=== PATIENT | male | born 1940 | race Caucasian/White ===

== ENCOUNTER 2019-01-26 20:13 | Inpatient (IN) | payer OTHER ==
[~2019-01-26] VITALS: Ht 172.7 cm; Wt 78.0 kg
[2019-01-26 20:13] VITALS: BP 132/65
--- NOTE | 2019-01-26 20:21 | NUR ---
BIBA TO ER BED 6
--- NOTE | 2019-01-26 20:30 | NUR ---
78/M PRESENTED TO ED BIBA WITH C/O GENERALIZED WEAKNESS X 3 DAYS. STATES HE HAD HEART BURN EARLIER TODAY. DID NOT TAKE MEDICATION TO RELIEVE SYMPTOMS. VSS. NO PAST MED HX. NO RX. DENIES ALLERGIES.
[2019-01-26 21:45] LABS: EOSINOPHILS # (AUTO) 0.2 K/uL (0-0.4); MONOCYTES # (AUTO) 0.3 K/uL (0.8-1.0); MONOCYTES % (AUTO) 9.7 % (1.7-9.3); NEUTROPHILS # (AUTO) 1.6 K/uL (1.8-7.7)
--- NOTE | 2019-01-26 22:00 | NUR ---
EKG PERFORMED AT BEDSIDE
--- NOTE | 2019-01-26 22:08 | NUR ---
WENT TO CT
[2019-01-26 22:18] LABS: EOSINOPHILS % (AUTO) 6.2 % (0.0-4.0); HEMATOCRIT 21.7 % (36-52); LYMPHOCYTES # (AUTO) 0.8 K/uL (2.0-11.5); LYMPHOCYTES % (AUTO) 26.9 % (20.5-51.1); MEAN CORPUSCULAR HEMOGLOBIN 30 pg (27-31); MEAN CORPUSCULAR HGB CONC 32 g/dL (33-37); MEAN CORPUSCULAR VOLUME 95.5 fL (80-94); NEUTROPHILS % (AUTO) 56.2 % (42.2-75.2); PLATELET COUNT (AUTO) 118 K/uL (140-450); RED BLOOD CELL COUNT(AUTO) 2.27 MIL/uL (4.20-6.10); RED CELL DISTRIBUTION WIDTH 14.8 % (11.6-13.7); WHITE BLOOD COUNT (AUTO) 2.9 K/uL (4.8-10.8)
[2019-01-26 22:23] LABS: HEMOGLOBIN 6.9 g/dL (12.0-18.0)
--- NOTE | 2019-01-26 22:23 | NUR ---
H/H 6.9 21.7, DR DOHERTY NOTIFIED
--- NOTE | 2019-01-26 22:44 | NUR ---
SUPERVISOR DRAWING AT BEDSIDE
[2019-01-26 22:57] LABS: ALBUMIN 3.4 g/dL (3.4-5.0); ANION GAP 23.7 (8-16); ASPARTATE AMINOTRANSFERASE 46 U/L (15-37); CARBON DIOXIDE 12.3 mmol/L (21-32); CHLORIDE 104 mmol/L (98-107); GLUCOSE 83 mg/dL (74-106); LIPASE 857 U/L (73-393); SODIUM SERUM 131 mmol/L (136-145); TOTAL BILIRUBIN 0.4 mg/dL (0.0-1.0)
[2019-01-26 23:05] LABS: CREATININE 14.1 mg/dL (0.7-1.3); UREA NITROGEN, BLOOD 163 mg/dL (7-18)
[2019-01-26] MEDS ORDERED: CALCIUM GLUCONATE 10% 1000 MG/10 ML VIAL IVP ONE (23:05)
[2019-01-26] MEDS ORDERED: INSULIN REGULAR, HUMAN 100 UNIT/ML VIAL IVP ONE (23:05)
[2019-01-26] MEDS ORDERED: DEXTROSE 50% 50 ML SYR IVP ONE (23:05)
[2019-01-26] MEDS ORDERED: ALBUTEROL 0.083% 2.5 MG/3 ML NEBU INH ONE (23:05)
[2019-01-26] MEDS ORDERED: SODIUM POLYSTYRENE 15 GM/60 ML UDBTL PO ONE (23:05)
[2019-01-26] MEDS ORDERED: NACL 0.9% 1,000 ML IV ONE ×2 (23:10→23:45)
[2019-01-26] MEDS ORDERED: cefTRIAXone 1,000 MG VIAL ONE (23:13)
[2019-01-26] MEDS ORDERED: ONDANSETRON 4 MG/2 ML VIAL IVP PRN (23:25)
[2019-01-26] MEDS ORDERED: ACETAMINOPHEN 325 MG TAB PO PRN (23:25)
[2019-01-26] MEDS ORDERED: HYDROcodone/APAP 7.5/325 MG 1 TAB PO PRN (23:25)
--- NOTE | 2019-01-26 23:56 | NUR ---
[employer] UTILITY WORKER AT BEDSIDE
--- NOTE | 2019-01-26 23:56 | NUR ---
FAMILY AT BEDSIDE. VSS. NO SIGNS OF DISTRESS. WILL CONTINUE TO MONITOR
[2019-01-27] VITALS (28 sets, daily range): BP systolic 90–144; BP diastolic 53–84
[2019-01-27 00:23] LABS: ANION GAP 20.9 (8-16); CARBON DIOXIDE 11.6 mmol/L (21-32); CHLORIDE 106 mmol/L (98-107); GLUCOSE 163 mg/dL (74-106); SODIUM SERUM 131 mmol/L (136-145)
[2019-01-27 00:28] LABS: CREATININE 13.2 mg/dL (0.7-1.3); POTASSIUM 7.5 mmol/L (3.5-5.1)
[2019-01-27 00:29] LABS: UREA NITROGEN, BLOOD 156 mg/dL (7-18)
[2019-01-27] MEDS ORDERED: PATIROMER CALCIUM SORBITEX 8.4 GM PKT PO ONE (00:55)
[2019-01-27 01:03] LABS: AMYLASE 110 U/L (25-115); MAGNESIUM 1.7 mg/dL (1.8-2.4); PHOSPHORUS 7.7 mg/dL (2.5-4.9)
[2019-01-27 01:22] LABS: APPEARANCE,URINE CLOUDY (CLEAR); BILIRUBIN,URINE NEGATIVE (NEGATIVE); BLOOD, URINE 3+ (NEGATIVE); COLOR,URINE AMBER (YELLOW); LEUKOCYTE ESTERASE ,URINE 3+ (NEGATIVE); NITRITE, URINE NEGATIVE (NEGATIVE); UGLUCOSE NEGATIVE (NEGATIVE)
--- NOTE | 2019-01-27 01:28 | NUR ---
Patient will be admitted to care of Dr. Hong . Admited to ICU. Will go to room 3. Belongings list completed. Report to MARIA LUZ Garcia .
[2019-01-27 01:33] LABS: BARBITURATE, URINE NEG. ng/ml (NEG <=200); BENZODIAZEPINE, URINE NEG. ng/mL (NEG <=200); COCAINE, URINE NEG. ng/mL (NEG <=300); OPIATE, URINE NEG. ng/mL (NEG <=2000)
--- NOTE | 2019-01-27 01:34 | NUR ---
RECEIVED CHANGE OF SHIFT REPORT FROM ER NURSE MAITE. PATIENT IS ON STANDARD PRECAUTIONS AND FULL CODE, WITH NO KNOWN ALLERGIES. HE IS A/O X 4, BUT APPEARS DROWSY. CURRENTLY ON ROOM AIR. PERRL IS PRESENT WITH PUPILS BILATERAL SIZE 3MM. SKIN IS WARM AND DRY AND INTACT BUT APPEARS PALE. NO EDEMA PRESENT. PULSES 2+ BILATERAL UPPER AND LOWER EXTREMITIES. LUNG SOUNDS SOUNDS ARE CLEAR THROUGHOUT. NSR ON PIG MACHINE OPERATOR HELPER. S1 AND S2 SOUND PRESENT. PATIENT HAS RIGHT AC PATENT 18 GAUGE IV LINE WITH SITE/DRESSING DRY AND INTACT. PATIENT ALSO HAS LEFT FOREARM PATENT 20 GAUGE IV LINE WITH SITE/DRESSING DRY AND INTACT. NO FLUIDS OR IV MEDICATIONS RUNNING AT THIS TIME. CURRENTLY PATIENT IS NPO EXCEPT FOR MEDS. BAUGH CATHETER IN PLACE AND URINE IS DARK YELLOW AND CLOUDY WITH NO BOWEL MOVEMENT NOTED AT THIS TIME. BED LEFT IN LOW SEMI FOWLERS POSITION, SIDE RAILS UPX2 WITH CALL LIGHT WITHIN REACH. WILL CONTINUE TO MONITOR.
[2019-01-27 02:03] LABS: FREE T4 (FREE THYROXINE) < 0.10 ng/dL (0.76-1.46); THYROID STIMULATING HORMONE 220.41 uIU/mL (0.34-3.74)
[2019-01-27 02:09] LABS: CANNABINOID, URINE NEG. ng/mL (NEG <=50); PHENCYCLIDINE SCREEN,URINE NEG. ng/mL (NEG <=25)
[2019-01-27] MEDS ORDERED: LEVOTHYROXINE SODIUM 100 MCG VIAL IV ONE (02:45)
[2019-01-27] MEDS ORDERED: NACL 0.9% 500 ML IV ONE (03:20)
[2019-01-27] MEDS ORDERED: NOREPINEPHRINE 16 MG in DEXTROSE 5% 250 ML IV PRN (03:45)
--- NOTE | 2019-01-27 03:45 | NUR ---
PATIENT CURRENTLY ASLEEP WHILE ON DIALYSIS TREATMENT. WILL CONTINUE TO MONITOR
[2019-01-27] MEDS ORDERED: NOREPINEPHRINE 4 MG/4 ML VIAL IV ONE (03:47)
[2019-01-27 04:18] LABS: RBC,URINE TOO NUMEROUS TO COUN /HPF (0-5); WBC,URINE TOO MANY TO COUNT /HPF (0-5)
--- NOTE | 2019-01-27 05:35 | NUR ---
DIALYSIS TREATMENT IS NOW COMPLETE. POSITIVE 1400ML. PATIENT TOLERATED DIALYSIS WELL. WILL CONTINUE TO MONITOR
[2019-01-27] MEDS ORDERED: PIPERACILLIN/TAZOBACTAM 2.25 GM in DEXTROSE 5% 50 ML IV SCH (07:00)
[2019-01-27] MEDS ORDERED: LEVOTHYROXINE 0.1 MG TAB PO SCH (07:00)
--- NOTE | 2019-01-27 07:10 | NUR ---
ADMINISTERED 1 UNIT OF BLOOD PRESCRIBED. BASELINE VITALS WERE TAKEN BEFORE ADMINISTRATION. WILL CONTINUE TO MONITOR.
--- NOTE | 2019-01-27 07:15 | NUR ---
RECEIVED BEDSIDE REPORT FROM HEAT PUMP INSTALLER RN, DEXTER, FOR CONTINUITY OF CARE. PATIENT IS AAOX2, ABLE TO FOLLOW COMMANDS AND MAKE NEEDS KNOWN. PATIENT SKIN IS WARM, DRY, AFEBRILE. SKIN INTACT, HAS ELIZABETH CATHETER TO RIJ. ASYMPTOMATIC AND PATENT. HE HAS LEVOPHED AT 2MCGS/KG/MIN AND 1 UNIT OF PRBC TRANSFUSING. VITALS STABLE, ON 3L NASAL CANNULA, BREATHING EVEN AND UNLABORED. DENIES ANY PAIN. HAS BAUGH CATHETER IN PLACE TO ЕЛЕНА URINE. HOB IS 45 DEGREES, SIDE RAILS UP 3X, BED LOCKED IN LOW POSITION. NO SIGNS OF DISTRESS NOTED. CALL LIGHT WITHIN REACH. WILL CONTINUE TO MONITOR.
--- NOTE | 2019-01-27 08:08 | NUR ---
PATIENT HAS BEEN SCREENED AND CATEGORIZED HIGH NUTRITION RISK. PATIENT WILL BE SEEN WITHIN 1-2 DAYS OF ADMISSION. 01/27/19-01/28/[address]
--- NOTE | 2019-01-27 08:10 | NUR ---
DR. LY AND RESIDENT PHYSICIANS AT BEDSIDE TO DO ROUNDS, UPDATED PATIENT AND PATIENT'S ON CONDITION. WILL FOLLOW UP ON ANY ORDERS
--- NOTE | 2019-01-27 08:34 | NUR ---
SPOKE TO PHYSICIAN STATES VBG SUFFICIENT FOR pH AND HCO3 RESULTS.
[2019-01-27] MEDS: LACTOBACILLUS RHAMNOSUS GG 1 EACH CAP PO SCH (09:04)
[2019-01-27] MEDS: DOCUSATE SODIUM 100 MG GELCAP PO SCH ×2 (09:04→20:30)
[2019-01-27] MEDS: PIPERACILLIN/TAZOBACTAM 2.25 GM in DEXTROSE 5% 50 ML IV SCH ×2 (09:05→20:30)
--- NOTE | 2019-01-27 09:40 | NUR ---
DR. COYNE IS HERE TO SEE PATIENT, UPDATED ON PATIENT'S CONDITION. SPOKE WITH PATIENT REGARDING HIS KIDNEY FUNCTION. WILL FOLLOW UP ON ANY ORDERS.
--- NOTE | 2019-01-27 09:49 | NUR ---
DR. BRICEÑO IS HERE TO SEE PATIENT, UPDATED ON PATIENT'S CONDITION. WILL FOLLOW UP ON ANY ORDERS.
--- NOTE | 2019-01-27 09:50 | NUR ---
PT SEEN AND EXAMINED BY DR. COYNE, RESIDENT PHYSICIAN DR. ALBERT ALSO IN THE UNIT. PER DR. COYNE AND DR. ALBERT, NO NEED TO ADMINISTER ORDERED ONE TIME DOSES OF VELTASSA (SCHEDULED 01/27 55) AND SYNTHROID IV (SCHEDULED 01/27/19 024) AT THIS TIME. PHARMACIST MADE AWARE.
--- NOTE | 2019-01-27 10:00 | NUR ---
PT IS ON O2 AT 2 LPM/NC, SPO2 100%. OK TO KEEP PT ON ROOM AIR AT THIS TIME PER DR. ALBERT. NASAL CANNULA REMOVED. NO SIGNS OF DISTRESS NOTED AT THIS TIME. VSS. WILL CONTINUE TO MONITOR.
[2019-01-27 10:04] LABS: ALBUMIN 2.8 g/dL (3.4-5.0); ANION GAP 13.4 (8-16); ASPARTATE AMINOTRANSFERASE 43 U/L (15-37); CARBON DIOXIDE 27.6 mmol/L (21-32); CHLORIDE 100 mmol/L (98-107); GLUCOSE 85 mg/dL (74-106); MAGNESIUM 1.3 mg/dL (1.8-2.4); PHOSPHORUS 4.8 mg/dL (2.5-4.9); SODIUM SERUM 137 mmol/L (136-145); TOTAL BILIRUBIN 0.5 mg/dL (0.0-1.0)
[2019-01-27 10:05] LABS: CREATININE 7.5 mg/dL (0.7-1.3); UREA NITROGEN, BLOOD 77 mg/dL (7-18)
[2019-01-27 10:06] LABS: CHOL/HDL RATIO 3.4 (1-4.5)
--- NOTE | 2019-01-27 10:17 | NUR ---
CALLED DR. COYNE REGARDING PATIENT'S LABS, ORDERS RECEIVED FOR TUMS 1 TAB TID. ALSO STATES TO FOLLOW UP FOR THE NEPHROSTOMY TUBE PLACEMENT PATIENT WILL NEED TO BE NPO FOR PROCEDURE.
--- NOTE | 2019-01-27 11:00 | NUR ---
DR. ALBERT MADE AWARE OF MAGNESIUM LEVEL OF 1.3. WILL FOLLOW UP ON ORDERS.
[2019-01-27] MEDS ORDERED: MAGNESIUM OXIDE 400 MG TAB PO SCH (11:30)
[2019-01-27] MEDS: CALCIUM CARBONATE 500 MG TAB.CHEW PO SCH ×2 (12:02→17:07)
--- NOTE | 2019-01-27 12:14 | NUR ---
ADMINISTERED SCHEDULED PO MEDS, PATIENT TOLERATED WELL. NO SIGNS OF DISTRESS NOTED
[2019-01-27 12:16] LABS: BASOPHILS % (AUTO) 0.6 % (0.0-2.0); EOSINOPHILS # (AUTO) 0.1 K/uL (0-0.4); EOSINOPHILS % (AUTO) 4.3 % (0.0-4.0); HEMATOCRIT 22.3 % (36-52); HEMOGLOBIN 7.4 g/dL (12.0-18.0); LYMPHOCYTES # (AUTO) 0.5 K/uL (2.0-11.5); LYMPHOCYTES % (AUTO) 17.9 % (20.5-51.1); MEAN CORPUSCULAR HEMOGLOBIN 30 pg (27-31); MEAN CORPUSCULAR HGB CONC 33 g/dL (33-37); MEAN CORPUSCULAR VOLUME 89.1 fL (80-94); MONOCYTES # (AUTO) 0.3 K/uL (0.8-1.0); MONOCYTES % (AUTO) 10.4 % (1.7-9.3); NEUTROPHILS % (AUTO) 66.8 % (42.2-75.2); PLATELET COUNT (AUTO) 101 K/uL (140-450); RED CELL DISTRIBUTION WIDTH 14.9 % (11.6-13.7)
--- NOTE | 2019-01-27 14:06 | NUR ---
DR. ALBERT STATES TO ADVANCE BAUGH CATHETER FURTHER SINCE US IMAGES SHOWS THAT THE TIP OF CATHETER IS LOW. DEFLATED BAUGH CATHETER BALLOON AND ADVANCED CATHETER IN UNTIL FELT RESISTANCE, MORE OUTPUT NOTED, DR. ALBERT IS AWARE. WILL CONTINUE TO MONITOR.
--- NOTE | 2019-01-27 14:38 | NUR ---
01/27/19 RD INITIAL ASSESSMENT COMPLETED PLEASE REFER TO NUTRITION ASSESSMENT UNDER CARE ACTIVITY FOR ESTIMATED NUTRITIONAL NEEDS. 1. CONTINUE NPO MEDICALLY NECESSARY 2. IF/WHEN MEDICALLY STABLE TO BEGIN PO INTAKE CONSIDER A SWALLOW EVALUATION 3. RECOMMEND A RENAL DIET WITH RECOMMENDED DIET TEXTURE AND LIQUID CONSISTENCY PER SWALLOW EVAL 4. RECOMMEND NEPRO BID 5. RD TO FOLLOW-UP 2-3 DAYS, HIGH RISK BARBI RAM, RD
--- NOTE | 2019-01-27 14:52 | NUR ---
DID BLADDER SCAN ON PATIENT, NO ML OF URINE FOUND, DR. ABLERT IS AWARE.
--- NOTE | 2019-01-27 15:50 | NUR ---
US TECH AT BEDSIDE FOR US OF BLADDER.
--- NOTE | 2019-01-27 18:16 | NUR ---
PATIENT'S FAMILY AT BEDSIDE
--- NOTE | 2019-01-27 18:46 | NUR ---
DR. MILLAN IS HERE TO SEE PATIENT AND UPDATED PATIENT'S FAMILY ON PATIENT'S CONDITION
--- NOTE | 2019-01-27 18:58 | NUR ---
PT HAD A SHORT RUN OF [employer], DR. MILLAN IN THE UNIT MADE AWARE. NO SIGNS OF ACUTE DISTRESS OR DISCOMFORT NOTED AT THIS TIME. WILL CONTINUE TO MONITOR.
--- NOTE | 2019-01-27 19:13 | NUR ---
PATIENT RECEIVED RENAL DIET FROM THE KITCHEN AT THIS TIME. FAMILY PRESENT AND ASSISTING PATIENT WITH EATING. PATIENT TOLERATING WELL. WILL CONTINUE TO MONITOR.
--- NOTE | 2019-01-27 19:20 | NUR ---
CHANGE OF SHIFT REPORT GIVEN AT BEDSIDE BY DAY NURSE. PATIENT HAS FAMILY MEMBERS AT BEDSIDE. PATIENT HAS GLASSES ON. COMMUNICATING TO FAMILY MEMBERS. RECEIVED FOOD FROM KITCHEN. TOLERATING FOOD WELL. PATIENT ON ROOM AIR. PERRL BOTH EYES BILATERAL AND SYMMETRICAL. LUNG SOUNDS CLEAR. SYMMETRICAL RESPIRATIONS. HR REGULAR. ON BEDSIDE MONITOR. BOWEL SOUNDS ACTIVE IN ALL 4 QUADRANTS. NO EDEMA NOTED. PATIENT SKIN INTACT. ABLE TO MOVE ARMS AND LEGS. PATIENT ABLE TO MOVE SELF IN BED. PULSES FELT ON ALL 4 EXTREMITIES. PATIENT ABLE TO MAKE NEEDS KNOWN. BAUGH CATHETER PRESENT AT THIS TIME. HEMATURIA PRESENT IN BAUGH BAG. SCDS PRESENT ON PATIENT WITH YELLOW SOCKS PRESENT. IV IN LFA 22G. R AC 22 G. ELIZABETH CATHETER RIGHT IJ PRESENT. IV SITES SHOW NO SIGN IF SWELLING OR REDNESS AT THIS TIME. BED IN LOWEST POSITION. SIDE RAILS UP. SAFETY MEASURES IN PLACE. DENIES PAIN AT THIS TIME. WILL CONTINUE TO MONITOR.
--- NOTE | 2019-01-27 19:55 | NUR ---
BLANKET REQUESTED AND GIVEN TO PATIENT AT THIS TIME
--- NOTE | 2019-01-27 21:00 | NUR ---
MEDICATION GIVEN TO PATIENT AFTER EXPLANATION OF MEDICATION. FAMILY PRESENT AT BEDSIDE. PATIENT TOOK PO MEDICATIONS ORDERED PER MD. PATIENT VERBALLY STATES HE UNDERSTANDS. NO COUGH NOTED. TOLERATED WELL WITH H20. WILL CONTINUE TO MONITOR.
--- NOTE | 2019-01-27 22:15 | NUR ---
PATIENT SNORING AT THIS TIME. VSS. WILL CONTINUE TO MONITOR AT THIS TIME.
[2019-01-28] VITALS (10 sets, daily range): BP systolic 97–111; BP diastolic 54–76
--- NOTE | 2019-01-28 01:14 | NUR ---
MONITORING PATIENTS URINE AMOUNT. PATIENTS URINE CONTINUES TO INCREASE THROUGHOUT NIGHT IN BAUGH BAG WHILE PATIENT IS SLEEPING. . WILL CONTINUE TO MONITOR. VSS. NO S/S OF DISTRESS NOTED AT THIS TIME.
--- NOTE | 2019-01-28 03:38 | NUR ---
PATIENT MOVING AND REPOSITIONING SELF IN BED. BED IN LOWEST POSITION. WILL CONTINUE TO MONITOR.
--- NOTE | 2019-01-28 04:55 | NUR ---
PATIENT REFUSED MORNING CARE AT THIS TIME. STATES "IM NOT READY YET". DENIES HAVING BM. NO BM NOTED. WILL ASK AGAIN LATER. BLOOD DRAWN FROM RIJ. VSS. NO DISTRESS NOTED. WILL CONTINUE TO MONITOR.
[2019-01-28 05:39] LABS: ANION GAP 11.8 (8-16); CARBON DIOXIDE 28.8 mmol/L (21-32); CHLORIDE 101 mmol/L (98-107); GLUCOSE 80 mg/dL (74-106); POTASSIUM 3.6 mmol/L (3.5-5.1); SODIUM SERUM 138 mmol/L (136-145)
[2019-01-28 05:42] LABS: BASOPHILS % (AUTO) 0.5 % (0.0-2.0); EOSINOPHILS # (AUTO) 0.1 K/uL (0-0.4); EOSINOPHILS % (AUTO) 2.9 % (0.0-4.0); HEMATOCRIT 22.7 % (36-52); HEMOGLOBIN 7.6 g/dL (12.0-18.0); LYMPHOCYTES # (AUTO) 0.8 K/uL (2.0-11.5); LYMPHOCYTES % (AUTO) 19.2 % (20.5-51.1); MEAN CORPUSCULAR HEMOGLOBIN 30 pg (27-31); MEAN CORPUSCULAR HGB CONC 33 g/dL (33-37); MEAN CORPUSCULAR VOLUME 89.9 fL (80-94); MONOCYTES # (AUTO) 0.4 K/uL (0.8-1.0); MONOCYTES % (AUTO) 9.1 % (1.7-9.3); NEUTROPHILS # (AUTO) 2.8 K/uL (1.8-7.7); NEUTROPHILS % (AUTO) 68.3 % (42.2-75.2); PLATELET COUNT (AUTO) 98 K/uL (140-450); RED BLOOD CELL COUNT(AUTO) 2.52 MIL/uL (4.20-6.10); RED CELL DISTRIBUTION WIDTH 15.5 % (11.6-13.7); UREA NITROGEN, BLOOD 76 mg/dL (7-18); WHITE BLOOD COUNT (AUTO) 4.1 K/uL (4.8-10.8)
--- NOTE | 2019-01-28 05:43 | NUR ---
LAB CALLED BUN 76. CREATININE 7.0 @ 0543 WRITTEN DOWN BY CHERELLE. NOTIFIED RESIDENTS (SHELBY) OF CRITICAL VALUE AT (0600). "OK THANK YOU". WILL CONTINUE TO MONITOR.
--- NOTE | 2019-01-28 05:43 | NUR ---
patient wanted to watch "danish channel" on tv. ASSISTED PATIENT WITH TV AND TAUGHT HOW TO USE IT. VERBALLY STATES HE UNDERSTANDS.WILL CONTINUE TO MONITOR.
--- NOTE | 2019-01-28 06:48 | NUR ---
PATIENT WATCHING TV AND FALLING ASLEEP. WILL CONTINUE TO MONITOR. NO S/S OF DISTRESS NOTED.
[2019-01-28] MEDS: LEVOTHYROXINE 0.1 MG TAB PO SCH (06:49)
--- NOTE | 2019-01-28 07:00 | NUR ---
RESIDENTS AT BEDSIDE DURING CHANGE OF SHIFT.
--- NOTE | 2019-01-28 07:06 | NUR ---
NO S/S OF DISTRESS NOTED. WATCHING TV. CHANGE OF SHIFT DONE. ABLE TO MAKE NEEDS KNOWN
--- NOTE | 2019-01-28 07:30 | NUR ---
RECEIVED PATIENT ON BED.NO CO PAIN NOR ANY DISCOMFORT.PT ASYMPTOMATIC.RIGHT AC 22 GAUGE AND LEFT FOREARM 22 GAUGE INTACT AND PATENT.NO SIGNS OF INFILTRATION.PT WITH BAUGH SINHALA 16 WITH HEMATURIA.RESIDENT AWARE AND MAKING ROUNDS.PT ON ROOM AIR. NSR ON THE MONITOR.NO CO PAIN NOR ANY DISCOMFORT.
[2019-01-28 08:09] LABS: HEPATITIS A ANTIBODY IGM Negative (Negative); HEPATITIS B SURFACE ANTIBODY Reactive (.); HEPATITIS B SURFACE ANTIGEN Negative (Negative)
[2019-01-28] MEDS: DOCUSATE SODIUM 100 MG GELCAP PO SCH ×2 (08:19→21:00)
[2019-01-28] MEDS: CALCIUM CARBONATE 500 MG TAB.CHEW PO SCH ×3 (08:19→17:21)
[2019-01-28] MEDS: LACTOBACILLUS RHAMNOSUS GG 1 EACH CAP PO SCH (08:19)
[2019-01-28] MEDS: PIPERACILLIN/TAZOBACTAM 2.25 GM in DEXTROSE 5% 50 ML IV SCH ×2 (08:21→22:48)
[2019-01-28] MEDS ORDERED: HYDROCORTISONE NA SUCC 100 MG/2 ML VIAL IV SCH (10:00)
[2019-01-28] MEDS ORDERED: HYDROCORTISONE 10 MG TAB PO SCH (10:00)
[2019-01-28 14:46] LABS: HEPATITIS B CORE AB TOTAL POSITIVE (NEGATIVE)
--- NOTE | 2019-01-28 15:50 | NUR ---
DR SMALLWOOD NOTIFIED OF BLADDER SCAN RESULT =198.ALSO BAUGH WAS IRRIGATED WITH 150 ML OF NORMAL SALINE VERBAL ORDERED BECAUSE MD WAS NOTIFIED OF URINE OUTPUT SINCE 0700 AM 380 ML AND HEMATURIA.
--- NOTE | 2019-01-28 18:59 | NUR ---
REPORT GIVEN TO
--- NOTE | 2019-01-28 19:00 | NUR ---
TRANSFERRED TO [facility] WITH A MONITOR WITH AND SON AT THE BEDSIDE.
--- NOTE | 2019-01-28 19:30 | NUR ---
RECEIVED REPORT FROM AM SHIFT RN FOR PT'S CONTINUITY OF CARE. PT IS LYING DOWN, AAOX4, FAMILY MEMBERS ARE AT BEDSIDE, IS ON DELINQUENT TAX COLLECTOR ASSISTANT, IS ON RA, HAS RIGHT AC 20G, AND LEFT FA 22G, DENIES PAIN AT THIS TIME. EXPLAINED TO PT AND FAM MEMBERS WATER TAXI CAPTAIN ROUTINE, THEY VERBALIZED UNDERSTANDING. BED IS ON LOW POSITION, SIDE RAILS ARE UP, AND CALL LIGHT IS WITHIN REACH. PT REQUESTED TO STAY FOR THE NIGHT. WILL MONITOR PT THROUGHOUT SHIFT.
--- NOTE | 2019-01-28 21:30 | NUR ---
FAMILY MEMBERS STATES THAT PT KEEPS REPEATING WORDS OVER AND OVER AGAIN, AND MENTATION CHANGED FOR A BIT, CAN'T FORMULATE WORDS. ASSESSED PT, FACE, EYES, ARMS, SPEECH ARE WITHIN NORMAL LEVEL. PT STATES HE KNOWS THE TIME AND PLACE BUT COULD NOT SAY IT. VITAL SIGNS ARE CHECKED AND WNL. PT STATES HE FEELS NAUSEATED AND BLOATED. BUT EVERYTHING IS FINE, HE JUST NEEDS TO REST. REED OR WIND INSTRUMENT REPAIRER AWARE. WILL RE-ASSESS AND WILL CONTINUE TO MONITOR.
--- NOTE | 2019-01-28 22:00 | NUR ---
STILL TRYING TO LOCATE AN IV PUMP. REASSESSED PT, MENTATION IS BACK TO NORMAL LIMITS, PT ABLE TO VERBALIZE ANSWERS WITHOUT DIFFICULTY, NO OBVIOUS FACIAL DROOPING, NO LOSS OF EYE COORDINATION. WILL CONTINUE TO MONITOR PT.
--- NOTE | 2019-01-28 22:48 | NUR ---
PT C/O FEELING NAUSEATED. ADMINISTERED SCHEDULED IV ABX ORDERED. PT REFUSED SCHEDULED PO MEDICATION DT NAUSEA FEELING. ADMINISTERED PRN IV PUSH ANTI-NAUSEA MEDICATION. PT TOLERATED IT WELL. WILL CONTINUE TO MONITOR.
[2019-01-29] VITALS: BP 113/67
--- NOTE | 2019-01-29 00:30 | NUR ---
VS CHECKED AND CHARTED. PT DENIES ANY PAIN AT THIS TIME.
--- NOTE | 2019-01-29 02:30 | NUR ---
MADE ROUNDS. PT ASLEEP WITH NO SIGNS OF DISTRESS. WILL CONTINUE TO MONITOR.
[2019-01-29 04:00] VITALS: BP 109/56
--- NOTE | 2019-01-29 04:15 | NUR ---
VS CHECKED AND CHARTED. PT DENIES PAIN AT THIS TIME. WILL CONTINUE TO MONITOR.
--- NOTE | 2019-01-29 04:45 | NUR ---
LUZMA BLOOD THROUGH ELIZABETH CATH, FOR MORNING LAB DRAW. PT DENIES ANY DISCOMFORT OR PAIN. WILL CONTINUE TO MONITOR PT.
[2019-01-29] MEDS: LEVOTHYROXINE 0.1 MG TAB PO SCH (06:34)
--- NOTE | 2019-01-29 06:34 | NUR ---
ADMINISTERED SCHEDULED PO MEDICATION ORDERED. PT TOLERATED IT WELL. DENIES ANY PAIN AT THIS TIME. STATES WANT TO GET REST AND SLEEP. WILL ENDORSE TO AM SHIFT RN FOR PT'S CONTINUITY OF CARE.
[2019-01-29 06:37] LABS: CARBON DIOXIDE 26.5 mmol/L (21-32); CHLORIDE 102 mmol/L (98-107); GLUCOSE 81 mg/dL (74-106); POTASSIUM 3.5 mmol/L (3.5-5.1); SODIUM SERUM 139 mmol/L (136-145)
[2019-01-29 06:41] LABS: CREATININE 6.2 mg/dL (0.7-1.3); UREA NITROGEN, BLOOD 69 mg/dL (7-18)
--- NOTE | 2019-01-29 06:43 | NUR ---
LAB PERSONNEL CALLED FOR CRITICAL VALUE BUN 69, CREAT 6.2, CA 7.3. NOTIFIED DR RYAN. NNO. WILL ENDORSE TO AM SHIFT RN.
[2019-01-29 06:49] LABS: BASOPHILS % (AUTO) 0.3 % (0.0-2.0); EOSINOPHILS # (AUTO) 0.1 K/uL (0-0.4); EOSINOPHILS % (AUTO) 1.1 % (0.0-4.0); HEMATOCRIT 22.7 % (36-52); HEMOGLOBIN 7.4 g/dL (12.0-18.0); LYMPHOCYTES % (AUTO) 16.9 % (20.5-51.1); MEAN CORPUSCULAR HEMOGLOBIN 30 pg (27-31); MEAN CORPUSCULAR HGB CONC 33 g/dL (33-37); MONOCYTES # (AUTO) 0.5 K/uL (0.8-1.0); MONOCYTES % (AUTO) 8.1 % (1.7-9.3); NEUTROPHILS # (AUTO) 4.3 K/uL (1.8-7.7); NEUTROPHILS % (AUTO) 73.6 % (42.2-75.2); PLATELET COUNT (AUTO) 101 K/uL (140-450); RED BLOOD CELL COUNT(AUTO) 2.52 MIL/uL (4.20-6.10); RED CELL DISTRIBUTION WIDTH 15.7 % (11.6-13.7); WHITE BLOOD COUNT (AUTO) 5.9 K/uL (4.8-10.8)
[2019-01-29 06:59] LABS: MAGNESIUM 1.2 mg/dL (1.8-2.4); PHOSPHORUS 5.1 mg/dL (2.5-4.9); THYROID STIMULATING HORMONE 140.4 uIU/mL (0.34-3.74)
--- NOTE | 2019-01-29 07:10 | NUR ---
PT RECEIVED FROM NIGHT NURSE. AAOX4 IN THE PRESENCE OF A FAMILY MEMBER. SKIN INTACT. DENIES PAIN. IV SIGHTS PATENT AND SALINE LOCKED R AC 20G AND L FA 22G. BED IN LOW POSITION. CALL LIGHT WITHIN REACH. SAFETY MEASURES IN PLACE. WILL CONTINUE TO MONITOR.
[2019-01-29 08:00] VITALS: BP 98/53
[2019-01-29] MEDS: PIPERACILLIN/TAZOBACTAM 2.25 GM in DEXTROSE 5% 50 ML IV SCH ×2 (08:47→21:12)
[2019-01-29] MEDS: DOCUSATE SODIUM 100 MG GELCAP PO SCH ×2 (08:47→21:00)
[2019-01-29] MEDS: LACTOBACILLUS RHAMNOSUS GG 1 EACH CAP PO SCH (08:48)
[2019-01-29] MEDS: CALCIUM CARBONATE 500 MG TAB.CHEW PO SCH ×4 (08:48→16:50)
--- NOTE | 2019-01-29 09:00 | NUR ---
MEDICATIONS ADMINISTERED PER ORDER. PT TOLERATED WELL AND DENIES ANY DISTRESS. SAFETY MEASURES IN PLACE. WILL CONTINUE TO MONITOR.
[2019-01-29 12:00] VITALS: BP 108/50
--- NOTE | 2019-01-29 12:00 | NUR ---
OFFERED PT ORDERED MEDICATIONS. PT REFUSED. PT UNDER NO DISTRESS NOR PAIN. SAFETY MEASURES IN PLACE. WILL CONTINUE TO MONITOR.
[2019-01-29 16:00] VITALS: BP 93/51
--- NOTE | 2019-01-29 19:10 | NUR ---
PT GIVEN TO NIGHT NURSE WITH BEDSIDE REPORT FOR CONTINUITY OF CARE
--- NOTE | 2019-01-29 19:12 | NUR ---
RECEIVED BEDSIDE REPORT FROM AM SHIFT RN SAIRA/TEJAS, FOR PT'S CONTINUITY OF CARE. PT IS LYING DOWN, WITH FAMILY MEMBER AT BEDSIDE. PT IS ON ETHNIC ORIGINS TEACHER, ON ROOM AIR, HAS RIGHT AC 20G, AND LEFT FA 22G SALINE LOCK, AND RIGHT IJ ELIZABETH CATH FOR DIALYSIS, HAS BAUGH CATHETER IN PLACE, AND DENIES ANY PAIN AT THIS TIME. EXPLAINED TO PT AND FAMILY MEMBER CONFIGURATION MANAGEMENT ARCHITECT ROUTINE, THEY VERBALIZED UNDERSTANDING. WILL MONITOR PT THROUGHOUT SHIFT.
[2019-01-29 20:00] VITALS: BP 101/58
--- NOTE | 2019-01-29 21:12 | NUR ---
VS CHECKED AND CHARTED. PT WAS SLEEPING. WOKE UP FOR MEDICATION ADMINISTRATION. PT REFUSED SCHEDULED PO MEDICATION, PT TEACHING GIVEN. ADMINISTERED SCHEDULED IV ABX ORDERED. PT FAMILY MEMBER AT BEDSIDE, INSTRUCTED PT TO DO BREATHING EXERCISES TO MAINTAIN O2 SATURATION OF 95% AND ABOVE. PT AND FAMILY MEMBER VERBALIZED UNDERSTANDING. WILL CONTINUE TO MONITOR.
[2019-01-29] MEDS ORDERED: MAG SULF 2000 MG/WATER PREMIX 50 ML IV SCH (23:00)
--- NOTE | 2019-01-29 23:36 | NUR ---
NOTIFIED RE: PT'S MAGNESIUM LEVEL. ADMINISTERED IV MAGNESIUM SULFATE ORDERED. PT'S VS CHECKED AND CHARTED. PT DENIES ANY PAIN AT THIS TIME. WILL CONTINUE TO MONITOR PT.
[2019-01-30] VITALS: BP 99/50
--- NOTE | 2019-01-30 02:00 | NUR ---
MADE ROUNDS. PT LYING DOWN ASLEEP, WITH NO SIGNS OF DISTRESS. WILL CONTINUE TO MONITOR PT.
[2019-01-30 04:00] VITALS: BP 100/50
--- NOTE | 2019-01-30 04:15 | NUR ---
VS CHECKED AND CHARTED. PT DENIES HAVING BOWEL MOVEMENT AND REFUSED TO BE CHANGED. PT DENIES ANY PAIN. WILL CONTINUE TO MONITOR.
[2019-01-30] MEDS: LEVOTHYROXINE 0.1 MG TAB PO SCH (06:30)
--- NOTE | 2019-01-30 06:30 | NUR ---
PT REFUSED SCHEDULED PO MEDICATION. EXPLAINED BENEFITS, PT TEACHING GIVEN, STILL REFUSED. WILL ENDORSE TO AM SHIFT RN FOR PT'S CONTINUITY OF CARE. PT IS IN STABLE CONDITION, RESTING, WITH FAMILY MEMBER AT BEDSIDE.
--- NOTE | 2019-01-30 07:24 | NUR ---
RECEIVED BEDSIDE REPORT FROM ANTIQUE FURNITURE REPAIRER RN. FOR PT'S CONTINUITY OF CARE. PT IS LYING DOWN, WITH FAMILY MEMBER AT BEDSIDE. PT IS ON PAYROLL SPECIALIST, ON ROOM AIR, HAS RIGHT AC 20G, AND LEFT FA 22G SALINE LOCK, AND RIGHT IJ ELIZABETH CATH FOR DIALYSIS, HAS BAUGH CATHETER IN PLACE, AND DENIES ANY PAIN AT THIS TIME. EXPLAINED TO PT AND FAMILY MEMBER ANTIQUE FURNITURE REPAIRER ROUTINE, THEY VERBALIZED UNDERSTANDING. WILL MONITOR PT THROUGHOUT SHIFT.
[2019-01-30 07:34] LABS: BASOPHILS % (AUTO) 0.4 % (0.0-2.0); EOSINOPHILS # (AUTO) 0.2 K/uL (0-0.4); EOSINOPHILS % (AUTO) 3.4 % (0.0-4.0); HEMATOCRIT 20.5 % (36-52); LYMPHOCYTES # (AUTO) 1.1 K/uL (2.0-11.5); LYMPHOCYTES % (AUTO) 21.2 % (20.5-51.1); MEAN CORPUSCULAR HEMOGLOBIN 30 pg (27-31); MEAN CORPUSCULAR HGB CONC 32 g/dL (33-37); MEAN CORPUSCULAR VOLUME 91.6 fL (80-94); MONOCYTES # (AUTO) 0.5 K/uL (0.8-1.0); MONOCYTES % (AUTO) 8.9 % (1.7-9.3); NEUTROPHILS # (AUTO) 3.4 K/uL (1.8-7.7); NEUTROPHILS % (AUTO) 66.1 % (42.2-75.2); PLATELET COUNT (AUTO) 87 K/uL (140-450); RED BLOOD CELL COUNT(AUTO) 2.24 MIL/uL (4.20-6.10); RED CELL DISTRIBUTION WIDTH 15.8 % (11.6-13.7); WHITE BLOOD COUNT (AUTO) 5.2 K/uL (4.8-10.8)
[2019-01-30 07:47] LABS: HEMOGLOBIN 6.6 g/dL (12.0-18.0)
[2019-01-30 08:00] VITALS: BP 106/48
[2019-01-30 08:19] LABS: MAGNESIUM 1.8 mg/dL (1.8-2.4); PHOSPHORUS 4.2 mg/dL (2.5-4.9)
[2019-01-30 08:24] LABS: ANION GAP 15.4 (8-16); CARBON DIOXIDE 25.9 mmol/L (21-32); CHLORIDE 101 mmol/L (98-107); GLUCOSE 83 mg/dL (74-106); POTASSIUM 3.3 mmol/L (3.5-5.1); SODIUM SERUM 139 mmol/L (136-145)
[2019-01-30 08:27] LABS: UREA NITROGEN, BLOOD 74 mg/dL (7-18)
[2019-01-30] MEDS: CALCIUM CARBONATE 500 MG TAB.CHEW PO SCH ×3 (09:00→16:09)
[2019-01-30] MEDS: LACTOBACILLUS RHAMNOSUS GG 1 EACH CAP PO SCH (09:15)
[2019-01-30] MEDS: DOCUSATE SODIUM 100 MG GELCAP PO SCH ×2 (09:16→20:25)
[2019-01-30] MEDS: PIPERACILLIN/TAZOBACTAM 2.25 GM in DEXTROSE 5% 50 ML IV SCH ×2 (09:17→20:25)
--- NOTE | 2019-01-30 09:20 | NUR ---
ADMINISTERED MORNING MEDS TO PT. PT TOLERATED THEM WELL. WILL CONTINUE TO ROUND FREQUENTLY ON PT.
[2019-01-30] MEDS ORDERED: POTASSIUM CHLORIDE 40 MEQ, LIDOCAINE MPF 1% - 5 mL VIAL 25 MG in NACL 0.9% 250 ML IV SCH (09:30)
[2019-01-30] MEDS: NACL 0.9% 1,000 ML IV SCH (10:15)
--- NOTE | 2019-01-30 11:13 | NUR ---
SNF EVAL REFERRAL SENT TO [facility].
--- NOTE | 2019-01-30 11:32 | NUR ---
PT RESTOING IN BED WITH FAMILY AT BEDSIDE. ALL NEEDS MET. WILL CONTINUE TO ROUND FREQUENTLY ON PT.
[2019-01-30 12:00] VITALS: BP 96/50
--- NOTE | 2019-01-30 13:28 | NUR ---
PT ASLEEP. NO SIGNS OF PAIN OR DISTRESS. WILL CONTINUE TO ROUND FREQUENTLY ON PT.
--- NOTE | 2019-01-30 15:52 | NUR ---
PT RESTING IN BED. ALL NEEDS MET. NO COMPLAINTS OF PAIN OR DISTRESS. WILL CONTINUE TO ROUND FREQUENTLY ON PT. BED IN LOW POSITION, CALL LIGHT WITHIN REACH.
[2019-01-30 16:00] VITALS: BP 98/54
--- NOTE | 2019-01-30 16:06 | NUR ---
01/30/19 RD FOLLOW UP COMPLETED PLEASE REFER TO NUTRITION ASSESSMENT UNDER CARE ACTIVITY FOR ESTIMATED NUTRITIONAL NEEDS. 1. CONTINUE RENAL DIET TOLERATED 2. RECOMMEND NEPRO BID IF PO INTAKE <75% 3. RD TO FOLLOW-UP 5-7 DAYS, LOW RISK BARBI RAM, RD
--- NOTE | 2019-01-30 17:59 | NUR ---
PT EATING DINNER IN BED WITH AT BEDSIDE. ALL NEEDS MET. WILL CONTINUE TO ROUND FREQUENTLY ON PT.
--- NOTE | 2019-01-30 19:41 | NUR ---
ENDORSED PT TO PRODUCTION WEIGHER FOR CONTINUITY OF CARE. PT IN STABLE CONDITION.
--- NOTE | 2019-01-30 19:42 | NUR ---
RECEIVED BEDSIDE REPORT FROM DAY SHIFT RN FOR PT'S CONTINUITY OF CARE. PT IS LYING DOWN, SPOUSE AT BEDSIDE. BREATHING EVEN AND UNLABORED ON ROOM AIR, IV SITE ON RAC 20G, SL, AND LFA 22G INFUSING NS. AND RIGHT IJ ELIZABETH CATH FOR DIALYSIS, HAS BAUGH CATHETER IN PLACE, AND DENIES ANY PAIN AT THIS TIME. BOARD UPDATED. BED IN LOW POSITION, CALL LIGHT WITHIN REACH.
--- NOTE | 2019-01-30 20:25 | NUR ---
GIVEN COLACE AND ZOSYN MD ORDERED. PT TOLERATED WELL.
--- NOTE | 2019-01-30 22:22 | NUR ---
PT SLEEPING IN BED. NO ACUTE DISTRESS NOTED.
[2019-01-31] VITALS: BP 101/43
--- NOTE | 2019-01-31 | NUR ---
VS CHECKED, WITHIN PT'S BASELINE. WILL CONTINUE TO MONITOR.
--- NOTE | 2019-01-31 02:25 | NUR ---
PT SLEEPING IN BED. BREATHING EVEN AND UNLABORED. NO ACUTE DISTRESS NOTED.
--- NOTE | 2019-01-31 05:50 | NUR ---
PT SLEEPING IN BED. BREATHING EVEN AND UNLABORED. NO ACUTE DISTRESS NOTED.
[2019-01-31] MEDS: LEVOTHYROXINE 0.1 MG TAB PO SCH (06:10)
--- NOTE | 2019-01-31 06:10 | NUR ---
GIVEN SYNTHROID MD ORDERED. PT TOLERATED WELL. WILL CONTINUE TO MONITOR.
[2019-01-31] MEDS: NACL 0.9% 1,000 ML IV SCH (06:15)
--- NOTE | 2019-01-31 07:00 | NUR ---
RECEIVED REPORT FROM VENDOR REPRESENTATIVES NURSE. PATIENT IS SITTING UP IN BED, AT BEDSIDE. PATIENT IS BOIS FORTE. A&OX4. PATIENT HAS TWO PERIPHERAL IV'S AND A RIGHT IJ. LBM 01/28. WILL CONTINUE TO MONITOR.
[2019-01-31 07:33] LABS: ANION GAP 13.8 (8-16); CARBON DIOXIDE 25.7 mmol/L (21-32); CHLORIDE 103 mmol/L (98-107); GLUCOSE 75 mg/dL (74-106); POTASSIUM 3.5 mmol/L (3.5-5.1); SODIUM SERUM 139 mmol/L (136-145)
[2019-01-31 07:43] LABS: BASOPHILS % (AUTO) 0.5 % (0.0-2.0); EOSINOPHILS # (AUTO) 0.2 K/uL (0-0.4); EOSINOPHILS % (AUTO) 5.6 % (0.0-4.0); LYMPHOCYTES # (AUTO) 0.8 K/uL (2.0-11.5); LYMPHOCYTES % (AUTO) 19.8 % (20.5-51.1); MEAN CORPUSCULAR HEMOGLOBIN 30 pg (27-31); MEAN CORPUSCULAR HGB CONC 32 g/dL (33-37); MEAN CORPUSCULAR VOLUME 92.2 fL (80-94); MONOCYTES # (AUTO) 0.4 K/uL (0.8-1.0); MONOCYTES % (AUTO) 9.2 % (1.7-9.3); NEUTROPHILS # (AUTO) 2.7 K/uL (1.8-7.7); NEUTROPHILS % (AUTO) 64.9 % (42.2-75.2); PLATELET COUNT (AUTO) 86 K/uL (140-450); RED BLOOD CELL COUNT(AUTO) 2.12 MIL/uL (4.20-6.10); RED CELL DISTRIBUTION WIDTH 15.5 % (11.6-13.7); WHITE BLOOD COUNT (AUTO) 4.1 K/uL (4.8-10.8)
[2019-01-31 08:00] VITALS: BP 97/54
[2019-01-31 08:03] LABS: HEMATOCRIT 19.5 % (36-52); HEMOGLOBIN 6.3 g/dL (12.0-18.0)
--- NOTE | 2019-01-31 08:05 | NUR ---
CRITICAL LAB VALUE OF HGB 8.3 AND HCT 19.[address] ALBERT MADE AWARE.
[2019-01-31] MEDS: PIPERACILLIN/TAZOBACTAM 2.25 GM in DEXTROSE 5% 50 ML IV SCH (08:26)
[2019-01-31] MEDS: LACTOBACILLUS RHAMNOSUS GG 1 EACH CAP PO SCH (08:27)
[2019-01-31] MEDS: FINASTERIDE 5 MG TAB PO SCH (08:28)
[2019-01-31] MEDS: DOCUSATE SODIUM 100 MG GELCAP PO SCH ×2 (08:28→20:47)
[2019-01-31] MEDS: CALCIUM CARBONATE 500 MG TAB.CHEW PO SCH ×3 (08:35→17:31)
[2019-01-31] MEDS: TAMSULOSIN 0.4 MG CAP PO SCH (08:35)
--- NOTE | 2019-01-31 09:00 | NUR ---
OBTAINED CONSENT FOR BLOOD TRANSFUSION PER DR ALBERT. PATIENT AWARE OF RISKS AND PROCEDURE.
[2019-01-31] MEDS ORDERED: FINA5TAB5 PO (09:01)
[2019-01-31] MEDS ORDERED: SYN.1 PO (09:01)
[2019-01-31] MEDS ORDERED: TAMS0.4C96 PO (09:01)
[2019-01-31 09:15] LABS: MAGNESIUM 1.5 mg/dL (1.8-2.4); PHOSPHORUS 3.8 mg/dL (2.5-4.9)
--- NOTE | 2019-01-31 09:35 | NUR ---
RECEIVED CRITICAL LAB VALUE OF BUN 70 AND CREA 5.3. DID NOT REPORT TO DR D/T LAB VALUES TRENDING DOWN FROM PREVIOUS.
[2019-01-31 09:44] LABS: UREA NITROGEN, BLOOD 70 mg/dL (7-18)
[2019-01-31 09:45] LABS: CREATININE 5.3 mg/dL (0.7-1.3)
[2019-01-31] MEDS ORDERED: EPOETIN ALFA 10,000 UNITS/ML VIAL IV SCH (10:30)
[2019-01-31] MEDS ORDERED: MAGNESIUM OXIDE 400 MG TAB PO SCH (10:30)
--- NOTE | 2019-01-31 11:16 | NUR ---
OBTAINED AND SENT OCCULT BLOOD SPECIMEN TO LAB.
--- NOTE | 2019-01-31 13:00 | NUR ---
PATIENT IS SLEEPING IN BED. AT BEDSIDE. VISIBLE CHEST RISE AND FALL. WILL CONTINUE TO MONITOR
--- NOTE | 2019-01-31 15:40 | NUR ---
OBTAINED AND VERIFIED BLOOD FROM LAB. PRE-TRANSFUSION VITALS ARE: T 97.7, O2 95% RA, BP 95/49, TN 84. WILL REMAIN WITH PATIENT DURING FIRST 15 MIN TO MONITOR
[2019-01-31 16:00] VITALS: BP 117/54
--- NOTE | 2019-01-31 19:30 | NUR ---
RECD. RESTING IN BED, AWAKE, A/OX4, HARD OF HEARING. IV OF NS AT 50 ML/HR INFUSING. BLOOD TRANSFUSION GIVEN BY AM NURSE, NO ALLERGIC REACTION NOTED. WITH RIGHT IJ RIGHT DIALYSIS LINE, WITH DRESSING. F/C PATENT DRAINING YELLOW CLOUDY URINE. PLAN OF CARE DISCUSSED. WITH FAMILY AND PATIENT. VERBALIZED UNDERSTANDING. DENIES PAIN 0/10.
[2019-01-31 20:00] VITALS: BP 95/63
--- NOTE | 2019-01-31 20:47 | NUR ---
DUE PO MEDICATION GIVEN.
--- NOTE | 2019-01-31 21:00 | NUR ---
Patient's Plan of Care was discussed and reviewed with SUPPLY CHAIN DEVELOPMENT MANAGER: SANDI MORENO
--- NOTE | 2019-01-31 21:40 | NUR ---
ASSISTED TO BR TO HAVE BM. GAIT STEADY. ASSISTED BACK TO BED, SAFETY MAINTAINED.
--- NOTE | 2019-02-01 | NUR ---
SLEEPING COMFORTABLY IN BED.
[2019-02-01] MEDS: NACL 0.9% 1,000 ML IV SCH ×2 (02:15→22:15)
[2019-02-01 04:00] VITALS: BP 96/54
[2019-02-01 04:00] LABS: ANION GAP 12.2 (8-16); CARBON DIOXIDE 24.7 mmol/L (21-32); CHLORIDE 103 mmol/L (98-107); GLUCOSE 141 mg/dL (74-106); SODIUM SERUM 137 mmol/L (136-145)
[2019-02-01 04:03] LABS: EOSINOPHILS # (AUTO) 0.2 K/uL (0-0.4); MAGNESIUM 1.3 mg/dL (1.8-2.4); MEAN CORPUSCULAR HEMOGLOBIN 30 pg (27-31); MEAN CORPUSCULAR HGB CONC 33 g/dL (33-37); MEAN CORPUSCULAR VOLUME 90.9 fL (80-94); MONOCYTES # (AUTO) 0.4 K/uL (0.8-1.0); NEUTROPHILS # (AUTO) 2.7 K/uL (1.8-7.7); PHOSPHORUS 3.7 mg/dL (2.5-4.9); WHITE BLOOD COUNT (AUTO) 4.1 K/uL (4.8-10.8)
[2019-02-01 04:10] LABS: BASOPHILS % (AUTO) 0.4 % (0.0-2.0); EOSINOPHILS % (AUTO) 5.7 % (0.0-4.0); HEMATOCRIT 20.4 % (36-52); LYMPHOCYTES # (AUTO) 0.7 K/uL (2.0-11.5); LYMPHOCYTES % (AUTO) 18.2 % (20.5-51.1); MONOCYTES % (AUTO) 9.2 % (1.7-9.3); NEUTROPHILS % (AUTO) 66.5 % (42.2-75.2); PLATELET COUNT (AUTO) 81 K/uL (140-450); RED BLOOD CELL COUNT(AUTO) 2.25 MIL/uL (4.20-6.10); RED CELL DISTRIBUTION WIDTH 15.8 % (11.6-13.7)
[2019-02-01 05:31] LABS: HEMOGLOBIN 6.6 g/dL (12.0-18.0)
[2019-02-01 05:32] LABS: POTASSIUM 2.9 mmol/L (3.5-5.1); UREA NITROGEN, BLOOD 66 mg/dL (7-18)
[2019-02-01 05:33] LABS: CREATININE 4.7 mg/dL (0.7-1.3)
[2019-02-01] MEDS: LEVOTHYROXINE 0.1 MG TAB PO SCH (06:38)
--- NOTE | 2019-02-01 07:04 | NUR ---
DR. ODONNELL CALLED, VERBALLY ORDERED KEEP PATIENT NPO, GET ORDER FOR EGD, WILL DO EGD THIS MORNING. INFORMED DR. MILLAN, WILL MAKE THE ORDERS.
--- NOTE | 2019-02-01 07:07 | NUR ---
WILL ENDORSE TO AM NURSE FOR CONTINUITY OF CARE.
--- NOTE | 2019-02-01 07:25 | NUR ---
ENDORSED TO MARIA LUZ LIEBERMAN FOR GIVING ENEMA AND FOR CONTINUITY OF CARE.
[2019-02-01] MEDS ORDERED: fentaNYL 0.05 MG/ML VIAL ONE (07:28)
[2019-02-01] MEDS ORDERED: MIDAZOLAM 2 MG/2 ML VIAL ONE (07:28)
[2019-02-01] MEDS ORDERED: diphenhydrAMINE 50 MG/ML VIAL ONE (07:29)
--- NOTE | 2019-02-01 07:40 | NUR ---
PT TAKEN TO EGD/COLONOSCOPY
[2019-02-01] MEDS ORDERED: MAG SULF 2000 MG/WATER PREMIX 50 ML IV SCH (08:00)
[2019-02-01] MEDS ORDERED: POTASSIUM CHLORIDE 10 MEQ TABER PO SCH (08:00)
[2019-02-01] MEDS ORDERED: POTASSIUM CHLORIDE 40 MEQ, LIDOCAINE MPF 1% - 5 mL VIAL 25 MG in NACL 0.9% 250 ML IV SCH (08:00)
[2019-02-01] MEDS: MIDAZOLAM 2 MG/2 ML VIAL IVP ONE ×2 (08:11→09:05)
[2019-02-01] MEDS: fentaNYL 0.05 MG/ML VIAL IVP ONE ×2 (08:12→09:05)
[2019-02-01] MEDS ORDERED: BOWEL EVACUANT DRINK 4,000 ML PDS PO SCH (08:30)
[2019-02-01 08:35] VITALS: BP 115/57
--- NOTE | 2019-02-01 08:40 | NUR ---
PT RETURNED FROM EGD, PT AWAKE ALERT, REPORT RECEIVED FROM DR ALIYAH CAREY AND MEDICAL TEAM AT BEDSIDE.
[2019-02-01] MEDS: MAGNESIUM OXIDE 400 MG TAB PO SCH (10:43)
[2019-02-01] MEDS: CALCIUM CARBONATE 500 MG TAB.CHEW PO SCH ×3 (10:44→17:00)
[2019-02-01] MEDS: DOCUSATE SODIUM 100 MG GELCAP PO SCH ×2 (10:44→21:22)
[2019-02-01] MEDS: FINASTERIDE 5 MG TAB PO SCH (10:44)
[2019-02-01] MEDS: LACTOBACILLUS RHAMNOSUS GG 1 EACH CAP PO SCH (10:44)
--- NOTE | 2019-02-01 10:50 | NUR ---
PT SITTING UP TALKING WITH WITHOUT PROBLEM, DENIES ANY PAIN, IVF INFUSING WELL, DENIES ANY NEEDS
[2019-02-01] MEDS: TAMSULOSIN 0.4 MG CAP PO SCH (10:58)
[2019-02-01] MEDS: PANTOPRAZOLE 40 MG TABEC PO SCH ×2 (10:58→21:22)
--- NOTE | 2019-02-01 13:20 | NUR ---
UP TO BEDSIDE COMMODE, PT DRINKING GOLYTELY
--- NOTE | 2019-02-01 15:20 | NUR ---
POTASSIUM INFUSION CONTINUES, WILL TRANSFUSE PRBC WHEN K DONE. LOOSE BROWN STOOL. GOLYTELY CONTINEUS
[2019-02-01 16:00] VITALS: BP 105/58
--- NOTE | 2019-02-01 17:00 | NUR ---
BLOOD TRANSFUSION STARTED, NATHEN NURSE VERIFIED WITH MARLON, SEE TRANSFUSION DOCUMENTATION
--- NOTE | 2019-02-01 17:15 | NUR ---
NO REACTIONS NOTED,
--- NOTE | 2019-02-01 18:30 | NUR ---
BLOOD TRANSFUSION CONTINUES, NO S/S OF REACTIONS NOTED, AT BEDSIDE, PT REPORTS MULTIPLE LOOSE STOOL USING BEDSIDE COMMODE
--- NOTE | 2019-02-01 19:04 | NUR ---
BEDSIDE REPORT GIVEN TO GROUNDS FOREMAN NURSE KATHY JUNIOR IN STABLE CONDITION
--- NOTE | 2019-02-01 19:05 | NUR ---
RECD. RESTING IN BED, AWAKE, A/OX4. HARD OF HEARING. RESPIRATION EVEN AND UNLABORED. BLOOD TRANSFUSION ON GOING, RIGHT HAND G22. F/C PATENT DRAINING CLOUDY YELLOW URINE. PLAN OF CARE FOR THE SHIFT DISCUSSED WITH PATIENT AND . VERBALIZED UNDERSTANDING. DENIES PAIN 0/10.
--- NOTE | 2019-02-01 19:30 | NUR ---
Patient's Plan of Care was discussed and reviewed with INFO SPECIALIST: SANDI MORENO
--- NOTE | 2019-02-01 20:05 | NUR ---
BLOOD TRANSFUSION DONE, NO ALLERGIC REACTION NOTED.
--- NOTE | 2019-02-01 21:25 | NUR ---
DUE PO MEDICATION GIVEN.
--- NOTE | 2019-02-01 22:00 | NUR ---
HAD BM TWICE, NOT YET CLEAR.
[2019-02-01 22:06] LABS: BASOPHILS % (AUTO) 0.7 % (0.0-2.0); EOSINOPHILS # (AUTO) 0.2 K/uL (0-0.4); EOSINOPHILS % (AUTO) 5.8 % (0.0-4.0); HEMATOCRIT 24.4 % (36-52); LYMPHOCYTES # (AUTO) 0.6 K/uL (2.0-11.5); LYMPHOCYTES % (AUTO) 15.8 % (20.5-51.1); MEAN CORPUSCULAR HEMOGLOBIN 30 pg (27-31); MEAN CORPUSCULAR HGB CONC 33 g/dL (33-37); MEAN CORPUSCULAR VOLUME 90.3 fL (80-94); MONOCYTES # (AUTO) 0.4 K/uL (0.8-1.0); MONOCYTES % (AUTO) 10.8 % (1.7-9.3); NEUTROPHILS # (AUTO) 2.7 K/uL (1.8-7.7); NEUTROPHILS % (AUTO) 66.9 % (42.2-75.2); PLATELET COUNT (AUTO) 85 K/uL (140-450); RED CELL DISTRIBUTION WIDTH 16.1 % (11.6-13.7)
--- NOTE | 2019-02-01 23:00 | NUR ---
NPO PAST MIDNIGHT FOR COLONOSCOPY IN AM. VERBALIZED UNDERSTANDING.
[2019-02-02] VITALS: BP 101/55
--- NOTE | 2019-02-02 | NUR ---
SLEEPING COMFORTABLY IN BED.
--- NOTE | 2019-02-02 05:30 | NUR ---
RESTING COMFORTABLY IN BED, NO DISTRESS NOTED.
[2019-02-02] MEDS: LEVOTHYROXINE 0.1 MG TAB PO SCH (06:30)
--- NOTE | 2019-02-02 07:10 | NUR ---
ENDORSOED TO AM NURSE FOR CONTINUITY OF CARE.
--- NOTE | 2019-02-02 07:15 | NUR ---
BEDSIDE REPORT FROM CHECK WRITING MACHINE OPERATOR NURSE, PT AWAKE ALERT, RESP EVEN UNLABORED, SKIN WARM DRY COLOR WNL, PT STATES HE HAD MANY BMs OVERNIGHT, BM SEETHROUGH BROWN, AT BEDSIDE, PLAN OF CARE REVIEWED, WILL CONTINUE TO MONTIOR
[2019-02-02] MEDS ORDERED: fentaNYL 0.05 MG/ML VIAL ONE (07:30)
[2019-02-02] MEDS ORDERED: diphenhydrAMINE 50 MG/ML VIAL ONE (07:31)
[2019-02-02] MEDS ORDERED: MIDAZOLAM 2 MG/2 ML VIAL ONE (07:31)
--- NOTE | 2019-02-02 07:48 | NUR ---
PT TAKEN TO GI SUITE FOR COLONOSCOPY
[2019-02-02 08:00] VITALS: BP 104/60
[2019-02-02 08:20] LABS: BASOPHILS % (AUTO) 0.7 % (0.0-2.0); EOSINOPHILS # (AUTO) 0.2 K/uL (0-0.4); EOSINOPHILS % (AUTO) 6.5 % (0.0-4.0); HEMATOCRIT 23.8 % (36-52); HEMOGLOBIN 7.8 g/dL (12.0-18.0); LYMPHOCYTES # (AUTO) 0.6 K/uL (2.0-11.5); LYMPHOCYTES % (AUTO) 16.3 % (20.5-51.1); MEAN CORPUSCULAR HEMOGLOBIN 30 pg (27-31); MEAN CORPUSCULAR HGB CONC 33 g/dL (33-37); MEAN CORPUSCULAR VOLUME 89.9 fL (80-94); MONOCYTES # (AUTO) 0.4 K/uL (0.8-1.0); MONOCYTES % (AUTO) 11.1 % (1.7-9.3); NEUTROPHILS # (AUTO) 2.3 K/uL (1.8-7.7); NEUTROPHILS % (AUTO) 65.4 % (42.2-75.2); PLATELET COUNT (AUTO) 87 K/uL (140-450); RED BLOOD CELL COUNT(AUTO) 2.65 MIL/uL (4.20-6.10); WHITE BLOOD COUNT (AUTO) 3.5 K/uL (4.8-10.8)
[2019-02-02] MEDS: TAMSULOSIN 0.4 MG CAP PO SCH (08:30)
[2019-02-02 08:44] LABS: ANION GAP 12.6 (8-16); CARBON DIOXIDE 26.3 mmol/L (21-32); CHLORIDE 107 mmol/L (98-107); CREATININE 3.7 mg/dL (0.7-1.3); GLUCOSE 76 mg/dL (74-106); POTASSIUM 3.9 mmol/L (3.5-5.1); SODIUM SERUM 142 mmol/L (136-145); UREA NITROGEN, BLOOD 47 mg/dL (7-18)
[2019-02-02] MEDS ORDERED: fentaNYL 0.05 MG/ML VIAL IVP ONE (08:50)
[2019-02-02] MEDS: DOCUSATE SODIUM 100 MG GELCAP PO SCH (09:00)
[2019-02-02 09:07] LABS: MAGNESIUM 1.5 mg/dL (1.8-2.4); PHOSPHORUS 2.9 mg/dL (2.5-4.9)
--- NOTE | 2019-02-02 09:30 | NUR ---
DR COYNE AT BEDSIDE
[2019-02-02] MEDS: LACTOBACILLUS RHAMNOSUS GG 1 EACH CAP PO SCH (09:42)
[2019-02-02] MEDS: PANTOPRAZOLE 40 MG TABEC PO SCH (09:42)
[2019-02-02] MEDS: FINASTERIDE 5 MG TAB PO SCH (09:42)
[2019-02-02] MEDS: CALCIUM CARBONATE 500 MG TAB.CHEW PO SCH (09:42)
[2019-02-02] MEDS: MAGNESIUM OXIDE 400 MG TAB PO SCH (09:42)
--- NOTE | 2019-02-02 09:47 | NUR ---
AM MEDS GIVEN PT SOULEYMANE WELL.
--- NOTE | 2019-02-02 12:01 | NUR ---
[facility] ROOM 204A UNDER DR. MILLAN. LEGAL PROCESS SPECIALIST WILL BE AT 1330 WITH [facility] [phone]. PRIMARY RN SCOTTY AND DR. RYAN MADE AWARE.
--- NOTE | 2019-02-02 12:10 | NUR ---
MET WITH PATIENT AND PATIENT'S AT BEDSIDE TOGETHER WITH PRIMARY RN SCOTTY AND RN BRITTANIE TO TRANSLATE. PATIENT IS REFUSING TO GO TO THE [facility]. PATIENT STATED "I WANT TO GO HOME AND I CAN FOLLOW UP WITH MY PCP." DR. ALBERT MADE AWARE. CONTACTED HUSSEIN [facility] AND MADE HER AWARE THAT PATIENT IS REFUSING TO GO. SHE STATED SHE WILL CALL THE TRANSPORT TO CANCEL.
--- NOTE | 2019-02-02 12:20 | NUR ---
PT AND HIS AT BEDSIDE STATE THAT, PATIENT DOES NOT WANT TO GO TO SNF, THEY WANT TO GO HOME, THEY STATE DOCTOR TOLD THEM THIS MORNING THAT PT IS GOING HOME, WILL NOTIFY DR BLAIR.,
--- NOTE | 2019-02-02 13:22 | NUR ---
DR BLAIR, RN BRITTANIE, AT BEDSIDE, DISCUSSING POC. RISKS OF REMOVING [facility] EXPLAINED TO PT AND HIS FAMILY, PT STILL DOES NOT WANT [facility] TO STAY IN. WILL DC [facility] AND DC HOME.
--- NOTE | 2019-02-02 14:30 | NUR ---
BAUGH CATH REMOVED, 9CC WATER REMOVED FROM BALLOON, CATH TIP INTACT, R IJ HD CATH REMOVED, CATH TIP INTACT, BLEEDING CONTROLLED, PT SOULEYMANE WELL, PIV REMOVED, PT SOULEYMANE WELL. DC INSTRUCTIONS AND RX GIVEN AND EXPLAINED TO PT AND IN [place] BY BRITTANIE BRAGA, PT VERBALIZED FULL UNDERSTANDING.
--- NOTE | 2019-02-02 15:00 | NUR ---
PT ESCORTED TO FRONT LOBBY IN WHEELCHAIR, DC HOME NOW WITH FAMILY.
== END 2019-02-02 15:00 | DRG 871 ==
LOC: MED 20:13 → MTU 23:21 → MIC 01-27 00:35 → MTU 01-28 19:25
PROVIDERS: ADMIT General Practice; ATTEND General Practice
PROC: 02HV33Z Insertion of Infusion Device into Superior Vena Cava, Percutaneous Approach (ICD-10-PCS; 2019-01-27)
PROC: B548ZZA Ultrasonography of Superior Vena Cava, Guidance (ICD-10-PCS; 2019-01-27)
PROC: 30233N1 Transfusion of Nonautologous Red Blood Cells into Peripheral Vein, Percutaneous Approach (ICD-10-PCS; 2019-01-31)
PROC: 0DB68ZX Excision of Stomach, Via Natural or Artificial Opening Endoscopic, Diagnostic (ICD-10-PCS; 2019-02-01)
PROC: 0DBN8ZZ Excision of Sigmoid Colon, Via Natural or Artificial Opening Endoscopic (ICD-10-PCS; 2019-02-02)
PROC: 0DBE8ZZ Excision of Large Intestine, Via Natural or Artificial Opening Endoscopic (ICD-10-PCS; principal; 2019-02-02 08:00)
DX: A41.9 Sepsis, unspecified organism (principal); G93.41 Metabolic encephalopathy; N17.0 Acute kidney failure with tubular necrosis; J96.01 Acute respiratory failure with hypoxia; R65.21 Severe sepsis with septic shock; K85.90 Acute pancreatitis without necrosis or infection, unspecified; E87.2 Acidosis; K22.10 Ulcer of esophagus without bleeding; M62.82 Rhabdomyolysis; E87.1 Hypo-osmolality and hyponatremia; D61.818 Other pancytopenia; N13.8 Other obstructive and reflux uropathy; D62 Acute posthemorrhagic anemia; N13.6 Pyonephrosis; E03.9 Hypothyroidism, unspecified; E87.5 Hyperkalemia; K29.60 Other gastritis without bleeding; K29.80 Duodenitis without bleeding; K57.30 Diverticulosis of large intestine without perforation or abscess without bleeding; N18.9 Chronic kidney disease, unspecified; D69.6 Thrombocytopenia, unspecified; N40.1 Benign prostatic hyperplasia with lower urinary tract symptoms; K40.20 Bilateral inguinal hernia, without obstruction or gangrene, not specified as recurrent; K80.20 Calculus of gallbladder without cholecystitis without obstruction; M47.896 Other spondylosis, lumbar region; Z87.891 Personal history of nicotine dependence; Z91.018 Allergy to other foods
CPT/HCPCS: 36415; 36600; 71045; 76536; 76770; 80048; 80053; 80305; 81001; 82150; 82272; 82550; 82553; 82803; 82948; 83036; 83605; 83690; 83735; 83880; 84100; 84439; 84443; 84484; 85025; 85610; 85730; 86704; 86706; 86708; 86709; 86803; 86886; 86900; 86901; 86920; 87040; 87081; 87086; 87340; 88305; 88312; 88313; 93005; 94640; 97110; 97112; 97116; 97161-GP; 97530; J0610; J0696; J0885; J1200; J1642; J1720; J1815; J2001; J2250; J2405; J2543; J3010; J3475; J3480; J3490; J7030; J7060; J7613; P9016; Q0092